=== PATIENT | male | born 1980 | race Caucasian/White ===

== ENCOUNTER 2020-03-24 18:58 | Emergency (ER) | payer SELFPAY ==
[~2020-03-24] VITALS: Ht 167.6 cm; Wt 82.5 kg
[2020-03-24] MEDS ORDERED: VISCOUS LIDOCAINE 2% 15 ML UDC PO ONE (22:00)
[2020-03-24] MEDS ORDERED: MAGNESIUM/ALUMINUM HYDROXIDE/SIMETHICONE 30ML UDC PO ONE (22:00)
[2020-03-24] MEDS ORDERED: ASPIRIN 81MG TABLET PO ONE (22:00)
[2020-03-24] MEDS ORDERED: ALPRAZOLAM 0.25 MG TABLET PO ONE (22:15)
[2020-03-24] MEDS ORDERED: KETOROLAC 30MG/ML VIAL IV ONE (22:15)
[2020-03-24 22:26] LABS: BASOPHILS % 0.6 % (0.0-2.0); EOSINOPHILS % 3.4 % (0.0-5.0); HEMATOCRIT. 44.7 % (42.0-52.0); HEMOGLOBIN. 15.2 g/dL (14.0-18.0); LYMPHOCYTES % 41.9 % (20.0-50.0); MEAN CORPUSCULAR HEMOGLOBIN 30.8 pg (28.0-32.0); MEAN CORPUSCULAR VOLUME 90.4 fL (80.0-94.0); MONOCYTES % 8.6 % (2.0-8.0); NEUTROPHILS % 45.5 % (40.0-76.0); PLATELET 200 x1000/uL (130-400); RED BLOOD CELL COUNT 4.94 mill/uL (4.7-6.1); RED CELL DISTRIBUTION WIDTH 13.6 % (11.6-14.6)
[2020-03-24 22:32] LABS: CHLORIDE 106 mEq/L (98-107)
[2020-03-25 00:44] VITALS: BP 125/84
== END 2020-03-25 00:45 | disposition home or self-care (01) ==
LOC: ER 18:58
DX: R07.89 Other chest pain (principal)
CPT/HCPCS: 36415; 71045; 80053; 83880; 84484; 85025; 93005; 99285; Z7610; J1885